=== PATIENT | female | born 1980 | race Caucasian/White ===

== ENCOUNTER 2022-05-18 01:45 | Inpatient (IN) | payer OTHER ==
[~2022-05-18] VITALS: Ht 165.1 cm; Wt 68.9 kg
[2022-05-18 01:48] VITALS: BP_SYST 140
[2022-05-18] MEDS ORDERED: ONDANSETRON HCL 4 MG/2 ML VIAL IVP ONE ×3 (02:15→07:15)
[2022-05-18] MEDS ORDERED: NACL 0.9% 1,000 ML IV ONE ×2 (02:15→03:45)
[2022-05-18] MEDS ORDERED: KETOROLAC TROMETHAMINE 30 MG VIAL IVP ONE ×2 (02:15→03:45)
[2022-05-18 02:42] LABS: BASOPHILS % (AUTO) 0.2 % (0.0-2.0); EOSINOPHILS # (AUTO) 0.1 K/uL (0.0-0.4); EOSINOPHILS % (AUTO) 0.4 % (0.0-4.0); HEMATOCRIT 46.5 % (36-48); HEMOGLOBIN 15.5 g/dL (12.0-16.0); LYMPHOCYTES # (AUTO) 1.2 K/uL (1.0-5.5); LYMPHOCYTES % (AUTO) 5.9 % (20.5-51.5); MEAN CORPUSCULAR HEMOGLOBIN 30 pg (27-31); MEAN CORPUSCULAR HGB CONC 33 % (32-36); MEAN CORPUSCULAR VOLUME 90 fL (79.0-98.0); MONOCYTES # (AUTO) 1.3 K/uL (0.0-1.0); MONOCYTES % (AUTO) 6.3 % (1.7-9.3); NEUTROPHILS # (AUTO) 17.6 K/uL (1.8-7.7); NEUTROPHILS % (AUTO) 87.2 % (40.0-70.0); PLATELET COUNT (AUTO) 253 K/uL (130-430); RED BLOOD CELL COUNT(AUTO) 5.17 MIL/uL (4.2-6.2); RED CELL DISTRIBUTION WIDTH 13.1 % (9.0-15.0); WHITE BLOOD COUNT (AUTO) 20.1 K/uL (4.8-10.8)
[2022-05-18 02:47] LABS: CALCIUM 8.6 mg/dL (8.4-11.0); CREATININE 0.83 mg/dL (0.55-1.30)
[2022-05-18 02:52] LABS: ALBUMIN 4.4 g/dL (3.4-4.8); TOTAL BILIRUBIN 0.5 mg/dL (0.0-1.0)
[2022-05-18] MEDS ORDERED: LAM25 PO (06:30)
[2022-05-18] MEDS ORDERED: DULO60CA42 PO (06:30)
[2022-05-18] MEDS ORDERED: metroNIDAZOLE 500 mg/NS 100 ML IV ONE (07:00)
[2022-05-18] MEDS ORDERED: MORPHINE 4 MG INJ. 4 MG/ML VIAL IVP ONE (07:00)
[2022-05-18] MEDS ORDERED: D5/0.45 NS 1,000 ML IV ONE (07:30)
[2022-05-18 09:49] VITALS: BP_SYST 117
[2022-05-18] MEDS ORDERED: ROSU40TA PO (10:02)
[2022-05-18 10:05] VITALS: BP_SYST 117
[2022-05-18] MEDS ORDERED: ACETAMINOPHEN 325 MG TABLET PO PRN ×2 (11:30→12:15)
[2022-05-18] MEDS ORDERED: NALOXONE HCL 0.4 MG/ML AMP (NARCAN) IVP PRN ×2 (11:30)
[2022-05-18] MEDS ORDERED: LORazepam 2 MG/ML VIAL IVP PRN (11:30)
[2022-05-18] MEDS ORDERED: HYDROcodone/ACETAMIN 5-325 MG TAB (NORCO/ VICODIN) PO PRN (11:30)
[2022-05-18 12:05] VITALS: BP_SYST 127
[2022-05-18] MEDS: HYDROcodone/ACETAMIN 10-325 MG TAB PO PRN ×2 (12:10→15:58)
[2022-05-18] MEDS: ONDANSETRON HCL 4 MG/2 ML VIAL IVP PRN ×2 (12:46→16:51)
[2022-05-18] MEDS ORDERED: cefTRIAXone 1 GM IVPB PREMIX 50 ML IV SCH (14:00)
[2022-05-18 16:00] VITALS: BP_SYST 135
[2022-05-18] MEDS ORDERED: DIPHENHYDRAMINE INJ 50 MG/ML VIAL IVP PRN (19:15)
[2022-05-18 20:00] VITALS: BP_SYST 129
[2022-05-18] MEDS ORDERED: ROSUVASTATIN CALCIUM 5 MG/TAB (CRESTOR) PO SCH (21:00)
[2022-05-18] MEDS ORDERED: ATORVASTATIN 20 MG TABLET PO SCH (21:00)
[2022-05-19] VITALS: BP_SYST 129; BP_SYST 146
[2022-05-19] MEDS: HYDROcodone/ACETAMIN 10-325 MG TAB PO PRN (05:30)
[2022-05-19] MEDS: ONDANSETRON HCL 4 MG/2 ML VIAL IVP PRN (05:30)
[2022-05-19 07:29] LABS: BASOPHILS % (AUTO) 0.6 % (0.0-2.0); EOSINOPHILS # (AUTO) 0.2 K/uL (0.0-0.4); EOSINOPHILS % (AUTO) 3.1 % (0.0-4.0); HEMATOCRIT 40.3 % (36-48); HEMOGLOBIN 13.7 g/dL (12.0-16.0); LYMPHOCYTES # (AUTO) 1.6 K/uL (1.0-5.5); LYMPHOCYTES % (AUTO) 30.6 % (20.5-51.5); MEAN CORPUSCULAR HEMOGLOBIN 31 pg (27-31); MEAN CORPUSCULAR HGB CONC 34 % (32-36); MEAN CORPUSCULAR VOLUME 91 fL (79.0-98.0); MONOCYTES % (AUTO) 19.7 % (1.7-9.3); NEUTROPHILS # (AUTO) 2.4 K/uL (1.8-7.7); PLATELET COUNT (AUTO) 202 K/uL (130-430); RED BLOOD CELL COUNT(AUTO) 4.42 MIL/uL (4.2-6.2); RED CELL DISTRIBUTION WIDTH 13.2 % (9.0-15.0); WHITE BLOOD COUNT (AUTO) 5.2 K/uL (4.8-10.8)
[2022-05-19 07:55] VITALS: BP_SYST 133
[2022-05-19 08:11] LABS: CALCIUM 8.4 mg/dL (8.4-11.0); CREATININE 1.09 mg/dL (0.55-1.30)
[2022-05-19] MEDS ORDERED: LamoTRIgine 25 MG TABLET PO SCH (09:00)
[2022-05-19] MEDS ORDERED: CIPR500T5 PO (11:02)
[2022-05-19] MEDS ORDERED: TRAM50TA2 PO (11:02)
[2022-05-19 11:19] VITALS: BP_SYST 137
[2022-05-19 11:29] VITALS: BP_SYST 137
[2022-05-19] MEDS ORDERED: ONDA-8 TL (11:53)
== END 2022-05-19 12:20 | disposition home health service (06) | DRG 392 ==
LOC: SED 01:45 → SMU 07:23
PROVIDERS: ADMIT Preventive Medicine Preventive Medicine/Occupational Environmental Medicine; ATTEND Preventive Medicine Preventive Medicine/Occupational Environmental Medicine
DX: K52.9 Noninfective gastroenteritis and colitis, unspecified (principal); N30.90 Cystitis, unspecified without hematuria; D72.829 Elevated white blood cell count, unspecified; R73.9 Hyperglycemia, unspecified; Z20.822 Contact with and (suspected) exposure to COVID-19; Z88.2 Allergy status to sulfonamides; Z79.899 Other long term (current) drug therapy
CPT/HCPCS: 36415; 76376; 80048; 80053; 85025; 87040; 87086; 96365; 96375; 96376; 99285; J0696; J1200; J1885; J2060; J2270; J2405; J3490